=== PATIENT | male | born 1955 | race Caucasian/White ===

== ENCOUNTER 2016-11-10 12:03 | Inpatient (IN) | payer OTHER ==
[~2016-11-10] VITALS: Ht 177.8 cm; Wt 89.0 kg
[~2016-11-10 12:03] MED LIST: LACTATED RINGER'S 1000 ML INJ 1,000 ML IV ONE; ONDANSETRON HCL 4 MG/2 ML VIAL IV PUSH ONE; PHENYLEPH/NS 1000 MCG/10 ML SYR IV ONE; PROPOFOL 200 MG/20 ML AMP IV ONE; ePHEDrine/NS 25 MG/5 ML SYR IV ONE
[2016-11-10 12:04] VITALS: BP 120/76; PULSE 105; RESP 20; TEMP 98.4; O2SAT 96
--- NOTE | 2016-11-10 12:44 | PD ---
HPI Chief Complaint: Injury Time Seen by Provider: 12:30 Travel History International Travel<30 days: No Contact w/Intl Traveler<30days: No Traveled to known affect area: No History of Present Illness HPI 61-year-old male presents for evaluation of right lower leg pain. He reports that yesterday evening he "missed a step" when walking into the steps of his brother's house. He reports that he was able to ambulatory primarily in his left leg keeping weight off of his right leg. He reports he woke up today with severe pain in the right lower leg. Pain is constant, aching, worse with movement or palpation. He denies any other injuries and has no other complaints at this time. [facility] Social History Alcohol Use: Yes Tobacco Use: No Allergies-Medications (Allergen,Severity, Reaction): Coded Allergies: No Known Allergies (Unverified , 11/10/16) Reported Meds & Prescriptions Reported Meds & Active Scripts Active Reported Wellbutrin SR 12 HR (Bupropion HCl) 150 Mg Tab 150 Mg PO Q12HR Alfuzosin ER 24 HR 10 Mg Tab 10 Mg PO HS Omeprazole 20 Mg Tab 20 Mg PO DAILY Trazodone (Trazodone HCl) 100 Mg Tab 250 Mg PO HS Aspirin 81 (Aspirin) 81 Mg Tabdr 81 Mg PO DAILY Amlodipine (Amlodipine Besylate) 5 Mg Tab 5 Mg PO DAILY Fluoxetine (Fluoxetine HCl) 40 Mg Cap 40 Cap PO DAILY Review of Systems Except as stated in HPI: all other systems reviewed are Neg Physical Exam Narrative GENERAL: Well-developed well-nourished male in no acute distress SKIN: Warm and dry. HEAD: Atraumatic. Normocephalic. EYES: Pupils equal and round. No scleral icterus. No injection or drainage. ENT: No nasal bleeding or discharge. Mucous membranes pink and moist. NECK: Trachea midline. No JVD. CARDIOVASCULAR: Regular rate and rhythm. No murmur appreciated. RESPIRATORY: No accessory muscle use. Clear to auscultation. Breath sounds equal bilaterally. GASTROINTESTINAL: Abdomen soft, non-tender, nondistended. Hepatic and splenic margins not palpable. MUSCULOSKELETAL: Deformity to the right lower leg. No skin tenting or obvious open wounds. Tender to palpation to the anterior right lower leg. 2+ dorsalis pedis and posterior tibial pulses. NEUROLOGICAL: Awake and alert. No obvious cranial nerve deficits. Motor grossly within normal limits. Normal speech. PSYCHIATRIC: Appropriate mood and affect; insight and judgment normal. Data Data Last Documented VS Vital Signs Date Time Temp Pulse Resp B/P Pulse Ox O2 Delivery O2 Flow Rate FiO2 11/10/16 12:04 98.4 105 20 120/76 96 Room Air Orders Tibia/Fibula (Ap/Lat) (11/10/16 ) Foot, Limited (2vws) (11/10/16 ) Complete Blood Count With Diff (11/10/16 12:40) Basic Metabolic Panel (Bmp) (11/10/16 12:40) Act Partial Throm Time (Ptt) (11/10/16 12:40) Prothrombin Time / Inr (Pt) (11/10/16 12:40) Iv Access Insert/Monitor (11/10/16 12:40) Ice/Cold Pack (11/10/16 12:40) Morphine Inj (Morphine Inj) (11/10/16 12:45) Ondansetron Inj (Zofran Inj) (11/10/16 12:45) Vascular Access Team Consult PRN (11/10/16 13:49) Morphine Inj (Morphine Inj) (11/10/16 14:00) Vascular Poc Ultrasound (11/10/16 ) Electrocardiogram (11/10/16 ) Chest, Single Ap (11/10/16 ) Splint Or Brace Apply/Monitor (11/10/16 14:15) NPO (11/10/16 14:15) Admit To Inpatient (11/10/16 ) Inpatient Certification (11/10/16 ) Diet Npo (11/10/16 Dinner) Activity Bed Rest (11/10/16 14:22) Vital Signs (Adult) CORINNA.Q4H (11/10/16 14:22) Admit Order (Ed Use Only) (11/10/16 14:22) MDM Medical Decision Making Medical Screen Exam Complete: Yes Emergency Medical Condition: Yes Medical Record Reviewed: Yes Interpretation(s) Right tibia-fibula x-rayFINDINGS: There is an oblique fracture of the distal tibial shaft. There is some lateral displacement of the distal fragment. There is fracture of the proximal and distal aspects of the fibula. The knee and ankle joints appear aligned. Differential Diagnosis Right tibia/fibular fracture, ankle sprain, Lisfranc injury, dislocation Narrative Course 61-year-old male with right lower leg pain. Plans for tibia-fibula x-ray, foot x-ray. Ice pack provided. The patient was given morphine and Zofran and basic lab work will be performed. X-ray imaging reveals oblique fractures of the distal tibia shaft, right proximal and distal fibula. [place] splint and knee immobilizer applied as well as an ice cuff. Discussed with orthopedic physician Dr. Pablo who would like the patient admitted, npo, plans on taking him to surgery today. I discussed with Dr. Lange who is agreeable with admission. Diagnosis Primary Impression: Fracture of right tibia and fibula Qualified Code: S82.201A - Fracture of right tibia and fibula, closed, initial encounter Admitting Information Admitting Physician Requests: Cody Danielle Nov 10, 2016 12:43
[2016-11-10] MEDS ORDERED: MORPHINE SULFATE 8 MG/ML INJ IV PUSH ONE (12:45)
[2016-11-10] MEDS ORDERED: ONDANSETRON HCL 4 MG/2 ML VIAL IV PUSH ONE (12:45)
--- NOTE | 2016-11-10 13:31 | RADRPT ---
EXAM DATE/TIME: 11/10/2016 12:07 [facility] COMPARISON: No previous studies available for comparison. INDICATIONS : Right lower leg pain post fall today. MEDICAL HISTORY : None. SURGICAL HISTORY : None. ENCOUNTER: Initial ACUITY: 1 day PAIN SCORE: 10/10 LOCATION: Right tibia/fibula. FINDINGS: There is an oblique fracture of the distal tibial shaft. There is some lateral displacement of the di stal fragment. There is fracture of the proximal and distal aspects of the fibula. The knee and ankle joints appear aligned. CONCLUSION: Tibia and fibular fractures. Baltazar Valdez MD on November 10, 2016 at 13:24 Board Certified Radiologist. This report was verified electronically.
--- NOTE | 2016-11-10 13:33 | RADRPT ---
EXAM DATE/TIME: 11/10/2016 12:08 [facility] COMPARISON: No previous studies available for comparison. INDICATIONS : Right foot pain post fall today. MEDICAL HISTORY : None. SURGICAL HISTORY : None. ENCOUNTER: Initial ACUITY: 1 day PAIN SCORE: 10/10 LOCATION: Right foot. FINDINGS: There is fracturing of the distal tibia and fibula. There does appear be a small bony density at the proximal medial base of the first metatarsal. A mild fracture versus an accessory ossicle could have this appearance. CONCLUSION: 1. Distal tibia and fibular fractures. 2. Small bony density adjacent to the proximal medial base of the first metatarsal likely related to a second accessory ossicle versus a small fracture fragment. Baltazar Valdez MD on November 10, 2016 at 13:29 Board Certified Radiologist. This report was verified electronically.
[2016-11-10] MEDS ORDERED: MORPHINE SULFATE 8 MG/ML INJ IM ONE (14:00)
[2016-11-10] MEDS ORDERED: FLUO40CA PO (14:09)
[2016-11-10] MEDS ORDERED: TRAZ100T4 PO (14:09)
[2016-11-10] MEDS ORDERED: ALFU10TA2 PO (14:09)
[2016-11-10] MEDS ORDERED: AMLO5TAB2 PO (14:09)
[2016-11-10] MEDS ORDERED: OMEP20TA PO (14:09)
[2016-11-10] MEDS ORDERED: ASPI-110 PO (14:09)
[2016-11-10] MEDS ORDERED: BUPR150CR PO (14:16)
[2016-11-10 14:28] VITALS: BP 154/89; PULSE 97; RESP 20; O2SAT 94
--- NOTE | 2016-11-10 14:46 | RADRPT ---
EXAM DATE/TIME: 11/10/2016 14:21 [facility] COMPARISON: No previous studies available for comparison. INDICATIONS : Evaluate for pulmonary disease. MEDICAL HISTORY : Hypertension. SURGICAL HISTORY : None. ENCOUNTER: Initial ACUITY: 1 day PAIN SCORE: 0/10 LOCATION: Bilateral chest FINDINGS: A single view of the chest demonstrates the lungs to be symmetrically aerated without evidence of mas s, infiltrate or effusion. The cardiomediastinal contours are unremarkable. Osseous structures are intact. CONCLUSION: No acute disease. Baltazar Valdez MD on November 10, 2016 at 14:45 Board Certified Radiologist. This report was verified electronically.
[2016-11-10] MEDS ORDERED: ACETAMINOPHEN 1000 MG/100 ML VIAL IV ONE (14:56)
[2016-11-10 15:13] LABS: AUTOMATED NEUTROPHIL # 9.4 TH/MM3 (1.8-7.7); BASOPHIL % 0.1 % (0.0-2.0); HEMATOCRIT 38.3 % (39.0-51.0); HEMO FLAGS DIFF FINAL; LYMPH % 9.5 % (9.0-44.0); LYMPHOCYTE # 1.1 TH/MM3 (1.0-4.8); MEAN CELL VOLUME 91.2 FL (80.0-100.0); MEAN CORPUSCULAR HEMOGLOBIN 30.4 PG (27.0-34.0); MEAN CORPUSCULAR HGB CONC 33.3 % (32.0-36.0); MONO % 9.5 % (0.0-8.0); NEUT % 80.9 % (16.0-70.0); PLATELET COUNT 238 TH/MM3 (150-450); RED BLOOD COUNT 4.19 MIL/MM3 (4.50-5.90); RED CELL DISTRIBUTION WIDTH 12.4 % (11.6-17.2); WHITE BLOOD COUNT 11.6 TH/MM3 (4.0-11.0)
--- NOTE | 2016-11-10 15:14 | PD.CONS ---
cc: Nicho Pablo MD right tibia/fibula fractures (Nataly Ott) HPI Service Orthopedic Surgeons Consult Requested By ER Staff Reason for Consult Right Tibia / Fibula Fractures Primary Care Physician Non-Staff Admission Diagnosis Right tibia/fibula fracture Diagnoses: (1) Closed fracture of right fibula and tibia Diagnosis: Principal (2) Hypertension (3) Depression (Nataly Ott) History of Present Illness 61 year old male presented today to [place] [facility] after a trip and fall incident yesterday. He admits he tripped off of his brother's back porch and landed on his right ankle. He states he had immediate pain localized to his right lower extremity. He admits to alcohol use at the time of injury. He admits he 'thought it wasn't that bad' and went to bed last night. He states he couldn't put any weight on his right lower extremity this morning and had severe pain with any attempt at ambulation, at this point he went to the emergency department. Orthopaedic consultation was requested upon evaluation and radiographs. X-rays reveal a closed right distal oblique minimally displaced tibial fracture as well as proximal and distal fibula fractures. Admits to no problems with ambulation prior to this injury. He denies prior orthopaedic surgery or problems. He is not anticoagulated. He is otherwise healthy. No other signs of injury or complaints at this time. (Nataly Ott) History of Present Illness The patient is from [place] and states he does have an orthopedic surgeon that can follow-up upon discharge. (Nicho Pablo MD) Review of Systems Psychiatric: COMPLAINS OF: Anxiety see medical chart (Nataly Ott) Past Family Social History Past Medical History HTN, depression, anxiety Past Surgical History tonsillectomy as child (Nataly Ott) Allergies: Coded Allergies: No Known Allergies (Unverified , 11/10/16) Active Ordered Medications Reported Meds & Active Scripts Active Reported Wellbutrin SR 12 HR (Bupropion HCl) 150 Mg Tab 150 Mg PO Q12HR Alfuzosin ER 24 HR 10 Mg Tab 10 Mg PO HS Omeprazole 20 Mg Tab 20 Mg PO DAILY Trazodone (Trazodone HCl) 100 Mg Tab 250 Mg PO HS Aspirin 81 (Aspirin) 81 Mg Tabdr 81 Mg PO DAILY Amlodipine (Amlodipine Besylate) 5 Mg Tab 5 Mg PO DAILY Fluoxetine (Fluoxetine HCl) 40 Mg Cap 40 Cap PO DAILY Family History non-contributory Social History social alcohol use, non smoker, no drug use (Nataly Ott) Physical Exam Vital Signs Vital Signs Date Time Temp Pulse Resp B/P Pulse Ox O2 Delivery O2 Flow Rate FiO2 11/10/16 14:28 97 20 154/89 94 Room Air 11/10/16 12:04 98.4 105 20 120/76 96 Room Air Physical Exam RLE: extremity in splint, splint was not removed for exam, freely able to move toes, good cap refill, pulses intact distally, sensation normal, neurovascular intact, pain with any attempted ROM, pain located over proximal fibula and distal tibia/fibula. No other signs of musculoskeletal injury. (Nataly Ott) Physical Exam No pain with passive range of motion of the toes. Laboratory Laboratory Tests Test 11/10/16 14:40 White Blood Count 11.6 TH/MM3 Red Blood Count 4.19 MIL/MM3 Hemoglobin 12.7 GM/DL Hematocrit 38.3 % Mean Corpuscular Volume 91.2 FL Mean Corpuscular Hemoglobin 30.4 PG Mean Corpuscular Hemoglobin 33.3 % Concent Red Cell Distribution Width 12.4 % Platelet Count 238 TH/MM3 Mean Platelet Volume 9.4 FL Neutrophils (%) (Auto) 80.9 % Lymphocytes (%) (Auto) 9.5 % Monocytes (%) (Auto) 9.5 % Eosinophils (%) (Auto) 0.0 % Basophils (%) (Auto) 0.1 % Neutrophils # (Auto) 9.4 TH/MM3 Lymphocytes # (Auto) 1.1 TH/MM3 Monocytes # (Auto) 1.1 TH/MM3 Eosinophils # (Auto) 0.0 TH/MM3 Basophils # (Auto) 0.0 TH/MM3 CBC Comment DIFF FINAL Differential Comment Prothrombin Time 10.7 SEC Prothromb Time International 1.0 RATIO Ratio Activated Partial 27.8 SEC Thromboplast Time Sodium Level 134 MEQ/L Potassium Level 4.4 MEQ/L Chloride Level 98 MEQ/L Carbon Dioxide Level 22.7 MEQ/L Anion Gap 13 MEQ/L Blood Urea Nitrogen 10 MG/DL Creatinine 1.29 MG/DL Estimat Glomerular Filtration 56 ML/MIN Rate Random Glucose 95 MG/DL Calcium Level 9.0 MG/DL (Nicho Pablo MD) Imaging Right tibia-fibula x-ray FINDINGS: There is an oblique fracture of the distal tibial shaft. There is some lateral displacement of the distal fragment. There is fracture of the proximal and distal aspects of the fibula. The knee and ankle joints appear aligned. Course see medical chart (Nataly Ott) Assessment & Plan Problem List: (1) Closed fracture of right fibula and tibia (2) Hypertension (3) Depression Assessment and Plan The findings were discussed with the patient. Recommendations are given for surgical management, to allow for mobilization and pain control. The plan is to proceed forward with intramedullary rhoda placement of right tibia, suprapatellar approach. The nature of the planned surgical procedure, the risks, the benefits as well as postoperative expectations have been discussed with the patient in detail. In addition, alternatives of the treatment and risks were discussed. The patient acknowledges full understanding and consents to it. Keep patient NPO until planned surgical procedure. Written by Nataly Ott (Ashley), acting as scribe for Dr. Pablo on at 15:08. (Nataly Ott) Assessment and Plan The nonoperative alternatives of closed reduction with cast immobilization as well as risks and benefits of same were discussed in detail. All of the questions were answered to the patient's satisfaction. Will proceed as above. The exam, history, and the medical decision-making described in the above note were completed with the assistance of the mid-level provider. I reviewed and agree with the findings presented. I attest that I had a [id number] encounter with the patient on the same day, and personally performed and documented my assessment and findings in the medical record. (Nicho Pablo MD) Nataly Ott Nov 10, 2016 15:14 iNcho Pablo MD Nov 10, 2016 15:52
--- NOTE | 2016-11-10 15:16 | HHI.HP ---
[facility] Non-Staff Admission Diagnosis Right tibia/fibula fracture Diagnoses: (1) Closed fracture of right fibula and tibia Diagnosis: Principal (2) Hypertension Diagnosis: Secondary Chief Complaint: Right leg pain Travel History International Travel<30 Days: No Contact w/Intl Traveler <30 Da: No Traveled to Known Affected Are: No History of Present Illness Patient is a very pleasant 61-year-old male with a known history of benign prostate hypertrophy, depression, hypertension from [place] who is here visiting his brother who last evening going through the back porch misjudged a step and fell and tripped. Apparently twisted his leg and woke up this morning with excruciating pain and swelling of the left foot. No chest pains, shortness of breath,. Denies any syncopal episodes . he was promptly brought in here by family on an evaluation showed a distal tib-fib fracture patient. Patient was promptly seen by orthopedic surgery and prepped dose go to surgery this afternoon. PCP is Dr. Bassett from [place] [facility] in [place] Review of Systems Constitutional: DENIES: Diaphoretic episodes, Fatigue, Fever, Weight gain, Weight loss, Chills, Dizziness, Change in appetite, Night Sweats Endocrine: DENIES: Heat/cold intolerance, Polydipsia, Polyuria, Polyphagia Eyes: DENIES: Blurred vision, Diplopia, Eye inflammation, Eye pain, Vision loss , Photosensitivity, Double Vision Ears, nose, mouth, throat: DENIES: Tinnitus, Hearing loss, Vertigo, Nasal discharge, Oral lesions, Throat pain, Hoarseness, Ear Pain, Running Nose, Epistaxis, Sinus Pain, Toothache, Odynophagia Respiratory: DENIES: Apneas, Cough, Snoring, Wheezing, Hemoptysis, Sputum production, Shortness of breath Cardiovascular: DENIES: Chest pain, Palpitations, Syncope, Dyspnea on Exertion , PND, Lower Extremity Edema, Orthopnea, Claudication Gastrointestinal: DENIES: Abdominal pain, Black stools, Bloody stools, Constipation, Diarrhea, Nausea, Vomiting, Difficulty Swallowing, Anorexia Genitourinary: DENIES: Sexual dysfunction, Urinary frequency, Urinary incontinence, Urgency, Hematuria, Dysuria, Nocturia, Penile Discharge, Testicular Pain, Testicular Swelling Musculoskeletal: DENIES: Joint pain, Muscle aches, Stiffness, Joint Swelling, Back pain, Neck pain Integumentary: DENIES: Abnormal pigmentation, Nail changes, Pruritus, Rash Hematologic/lymphatic: DENIES: Bruising, Lymphadenopathy Immunologic/allergic: DENIES: Eczema, Urticaria Neurologic: DENIES: Abnormal gait, Headache, Localized weakness, Paresthesias, Seizures, Speech Problems, Tremor, Poor Balance Psychiatric: DENIES: Anxiety, Confusion, Mood changes, Depression, Hallucinations, Agitation, Suicidal Ideation, Homicidal Ideation, Delusions Past Family Social History Past Medical History Hypertension Depression Benign prostate hypertrophy GERD Colonoscopy done 3 times. First and second colonoscopy shows polyps benign. third colonoscopy normal Past Surgical History Testicular mass removal at 11 years of age Tonsillectomy as a child Reported Medications Wellbutrin SR 150 mg every 12 Fluoxetine 40 mg daily Trazodone to meet to 50 mg at bedtime Amlodipine 5 mg daily Aspirin 81 mg daily Omeprazole 20 mg daily Alfuzosin 10 mg at bedtime Allergies: Coded Allergies: No Known Allergies (Unverified , 11/10/16) Family History Noncontributory Social History No smoking history Occasional wine No history of substance abuse Physical Exam Vital Signs Vital Signs Date Time Temp Pulse Resp B/P Pulse Ox O2 Delivery O2 Flow Rate FiO2 11/10/16 14:28 97 20 154/89 94 Room Air 11/10/16 12:04 98.4 105 20 120/76 96 Room Air Physical Exam GENERAL: This is a well-nourished, well-developed patient, in no apparent distress. SKIN: No rashes, ecchymoses or lesions. Cool and dry. HEAD: Atraumatic. Normocephalic.. EYES: Pupils equal round and reactive. Extraocular motions intact. No scleral icterus. ENT: Nose without bleeding, Throat without erythema,. Airway patent. NECK: . No JVD or lymphadenopathy. Supple, nontender, no meningeal signs. CARDIOVASCULAR: Regular rate and rhythm without murmurs, gallops, or rubs. RESPIRATORY: Clear to auscultation. Breath sounds equal bilaterally. No wheezes , rales, or rhonchi. GASTROINTESTINAL: Abdomen soft, non-tender, nondistended. No hepato-splenomegaly , or palpable masses. No guarding. MUSCULOSKELETAL: Extremities without clubbing, cyanosis, or edema. Right lower extremity with brace in place. Bilateral dorsalis pedis posterior tib tibialis +2. NEUROLOGICAL: Awake and alert. Cranial nerves II through XII intact. Normal speech. Right lower extremity motor exam limited by pain Assessment and Plan Assessment and Plan 61-year-old male presenting with Status post fall with right tib-fib fracture. Orthopedic service taking him to surgery When necessary pain meds postop History of hypertension continue meds postop Chest x-ray no acute infiltrates or effusion . 12-lead EKG reviewed shows left axis deviation left anterior hemiblock no acute ST-T wave changes History of GERD. Continue on Prilosec postop History of BPH continue on meds postop DVT prophylaxis postop per orthopedic service Discussed Condition With Patient Physician Certification 2 Midnight Certification Type: Admission for Inpatient Services Order for Inpatient Services The services are ordered in accordance with Medicare regulations or non- Medicare payer requirements, as applicable. In the case of services not specified as inpatient-only, they are appropriately provided as inpatient services in accordance with the 2-midnight benchmark. Estimated LOS (days): 3 days is the estimated time the patient will need to remain in the hospital, assuming treatment plan goals are met and no additional complications. Post-Hospital Plan: Not yet determined James Lange MD Nov 10, 2016 15:16
[2016-11-10 15:20] VITALS: BP 121/86; PULSE 96; RESP 20; TEMP 97.9; O2SAT 96
[2016-11-10] MEDS ORDERED: VANCOMYCIN HCL 1000 MG VIAL ONE (15:21)
[2016-11-10] MEDS ORDERED: ceFAZolin INJ 1,000 MG VIAL ONE (15:21)
[2016-11-10] MEDS ORDERED: GENTAMICIN SULFATE 80 MG/2 ML VIAL ONE (15:22)
[2016-11-10 15:29] LABS: BICARBONATE 22.7 MEQ/L (21.0-32.0); POTASSIUM 4.4 MEQ/L (3.5-5.1)
[2016-11-10 15:34] LABS: APTT (PATIENT) 27.8 SEC (24.3-30.1); PROTHROMBIN TIME - PATIENT 10.7 SEC (9.8-11.6)
[2016-11-10] MEDS ORDERED: DEXT 5%-NACL 0.9% 1000 ML INJ 1,000 ML IV SCH (15:45)
--- NOTE | 2016-11-10 17:37 | PD.OP ---
cc: Nicho Pablo MD Operative Report Date of Surgery: Nov 10, 2016 Preoperative Diagnosis: (1) Closed fracture of right fibula and tibia Postoperative Diagnosis: (1) Closed fracture of right fibula and tibia Procedure: Closed reduction with intramedullary rhoda fixation right tibia Implants used: Synthes Anesthesia: Gen. Surgeon: Nicho Pablo Infection Control Preventionist(s): Nataly Ott PA-C (Ashley) The surgical procedure was assisted by my physician's speech language pathology assistant. Her presence was necessary throughout the case for manipulation and positioning of the surgical extremity. My PA was assisting me throughout the duration of this procedure. The skill set of the physician speech language pathology assistant was medically necessary to complete this procedure. During the surgical case the cartography/mapping technician was working at the back table and the physician speech language pathology assistant was directly assisting me. Operation and Findings: Indications: This 61-year-old male fell on stairs yesterday injuring his right lower extremity. He did not seek medical treatment until today when his pain got worse. He presented to [facility]. X-rays revealed a displaced fracture of the distal tibia and a segmental fibula fracture. Given the alternatives of treatment both operative and nonoperative he presents for internal fixation. Procedure and findings: Patient was taken to the operative suite and after undergoing an adequate level of general anesthesia was kept supine on the operating table. Preoperative antibiotics consisted of Ancef 2 g IV. The right lower extremity was then prepped and draped in usual sterile fashion with Betadine. A suprapatellar approach to the proximal tibia was made with incision approximately 4 cm proximal to the superior pole of the patella. This was carried down through skin and subcutaneous tense tissue with a knife. Hemostasis was obtained with cautery. The quadricep tendon was identified and a 3 cm split made. The joint capsule was opened. A trocar was then placed through the joint to the proximal tibial plateau. The position was checked in both the AP and lateral planes with the C-arm. A threaded guidepin was advanced. The position was also checked with fluoroscopy. It was subsequently overdrilled. A ball-tipped guide pin was advanced down the proximal tibia across the fracture site to the ankle. A measurement was made. The tibia was then sequentially reamed after releasing the tourniquet up to a size 12. An 11 x 3 75 Synthes rhoda was selected. It was impacted into place. The position of the fracture reduction was checked in both the AP and lateral planes with the C- arm. An outrigger device was utilized for interlocking fixation proximally. 2 screws were placed from medial to lateral. Distally a freehand technique was utilized. One medial to lateral screw was placed. Attempt was made at another medial to lateral screw however it was at the fracture site and did not give fixation. An anterior to posterior screw was then placed. The position of the fracture reduction and placement of the internal fixation were checked in both the AP and lateral planes with the C-arm. The wounds were then all thoroughly irrigated. There were closed in layers utilizing #1 Vicryl on the tenotomy and deep tissue, 2-0 Vicryl suture and the subcutaneous tense tissue and adrienne on the skin and percutaneous sites. Sterile dressings were applied, the patient was placed into a splint, awakened, transferred to the hospital bed and taken to the recovery room in stable condition. Estimated blood loss: 100 cc Complications: None Tourniquet time: 15 minutes Nicho Pablo MD Nov 10, 2016 17:37
[2016-11-10] MEDS ORDERED: MORPHINE SULFATE 30 MG/30 ML PCA IV SCH (17:45)
[2016-11-10] MEDS ORDERED: Post-op Orders (for Pharmacy) MISC XX ONE (17:45)
[2016-11-10] MEDS ORDERED: ONDANSETRON HCL 4 MG/2 ML VIAL IVP PRN (17:45)
[2016-11-10] MEDS ORDERED: NALOXONE HCL 0.4 MG/ML AMP IV PRN (17:45)
[2016-11-10] MEDS ORDERED: SODIUM CHLORIDE 0.9% FLUSH 5 ML FLUSH IVF PRN (17:45)
[2016-11-10] MEDS ORDERED: oxyCODONE/ACETAMINOPHEN 5 MG/325 MG TAB PO PRN (17:45)
[2016-11-10] MEDS ORDERED: MISCELLANEOUS NURSING INFORMATION XX PRN (17:45)
[2016-11-10] MEDS ORDERED: POVIDONE IODINE 10% SOLN 118 ML BOTTLE TOPICAL PRN (17:45)
[2016-11-10] MEDS ORDERED: diphenhydrAMINE HCL 25 MG CAP PO PRN (17:45)
[2016-11-10] MEDS ORDERED: MISCELLANEOUS PHARMACY INFORMATION XX ONE (17:45)
[2016-11-10] MEDS ORDERED: MAGNESIUM HYDROXIDE SUSP 30 ML CUP PO PRN (17:45)
[2016-11-10] MEDS ORDERED: fentaNYL CITRATE 250 MCG/5 ML AMP ONE (17:59)
[2016-11-10] MEDS ORDERED: MIDAZOLAM HCL 2 MG/2 ML VIAL ONE (17:59)
[2016-11-10] MEDS: DEXT 5%-NACL 0.45% 1000 ML INJ 1,000 ML IV SCH (18:00)
[2016-11-10] MEDS ORDERED: MORPHINE SULFATE 4 MG/ML INJ IV PRN (18:15)
[2016-11-10] MEDS ORDERED: DO NOT ADM ANY ANTICOAGULANT DRUGS XX PRN (18:15)
--- NOTE | 2016-11-10 18:27 | RADRPT ---
EXAM DATE/TIME: 11/10/2016 15:56 [facility] COMPARISON: TIBIA/FIBULA RIGHT (AP/LAT), November 10, 2016, 12:07. INDICATIONS : Open reduction in operating room. MEDICAL HISTORY : None. SURGICAL HISTORY : None. ENCOUNTER: Subsequent ACUITY: 1 day PAIN SCORE: Non-responsive. LOCATION: Right lateral FINDINGS: Two view examination of the right tibia demonstrates nilesh fixation across a spiral fracture of the dis hanna tibia with near-anatomic alignment. Mildly displaced distal fibular fracture again noted. Proxima l fibular fracture also present. CONCLUSION: 1. Nilesh fixation of distal tibial fracture with near-anatomic alignment. Bonifacio Mary MD on November 10, 2016 at 18:23 Board Certified Radiologist. This report was verified electronically.
[2016-11-10 19:54] VITALS: O2SAT 99
[2016-11-10 20:45] VITALS: BP 129/75; PULSE 95; RESP 16; TEMP 98.2; O2SAT 98
[2016-11-10] MEDS: PCA - TOTAL MG MORPHINE DELIVERED PER SHIFT SCH (22:00)
[2016-11-10] MEDS: oxyCODONE/ACETAMINOPHEN 5 MG/325 MG TAB PO PRN (23:06)
[2016-11-10] MEDS: traZODone HCL 100 MG TAB PO SCH (23:07)
[2016-11-10] MEDS: buPROPion HCL 150 MG SUSTAINED RELEASE TAB PO SCH (23:07)
[2016-11-10] MEDS: DOCUSATE SODIUM 50 MG/SENNA 8.6 MG TAB PO SCH (23:07)
[2016-11-10] MEDS: SODIUM CHLORIDE 0.9% FLUSH 5 ML FLUSH IVF SCH (23:08)
[2016-11-11] VITALS (8 sets, daily range): BP systolic 110–146; BP diastolic 67–91; PULSE 70–94; RESP 16–20; TEMP 97–98.6; O2SAT 95–97
[2016-11-11] MEDS ORDERED: ceFAZolin 2 GM PREMIX 50 ML IV SCH
[2016-11-11 06:13] LABS: HEMATOCRIT 37.6 % (39.0-51.0); REVIEW FLAG FINAL
[2016-11-11] MEDS: RIVAROXABAN 10 MG TAB PO SCH (06:59)
[2016-11-11] MEDS: oxyCODONE/ACETAMINOPHEN 5 MG/325 MG TAB PO PRN ×3 (07:00→21:21)
--- NOTE | 2016-11-11 07:47 | PD.ORT.PN ---
Subjective Post Op Day #: 1 Subjective Remarks Patient laying comfortably in bed, admits right lower extremity pain is well controlled. RN reports IV line was infiltrated last night and was unable to secure new IV access. He is from out of town but is able to stay with his brother upon discharge if needed, admits to orthopedist [facility]. No other complaints noted. Objective Vitals Vital Signs Date Time Temp Pulse Resp B/P Pulse Ox O2 Delivery O2 Flow Rate FiO2 11/11/16 04:05 97.6 76 16 146/91 97 11/11/16 00:25 97.0 86 18 110/83 95 11/10/16 22:00 17 11/10/16 20:45 98.2 95 16 129/75 98 11/10/16 19:54 99 Nasal Cannula 2.00 11/10/16 18:20 97.7 77 22 140/89 99 Nasal Cannula 2 11/10/16 18:15 77 22 140/89 99 Nasal Cannula 2 11/10/16 18:00 83 22 151/96 99 Nasal Cannula 2 11/10/16 17:45 73 22 157/95 100 Nasal Cannula 2 11/10/16 17:39 98.0 74 22 147/96 100 Nasal Cannula 2 11/10/16 15:20 97.9 96 20 121/86 96 11/10/16 14:28 97 20 154/89 94 Room Air 11/10/16 12:04 98.4 105 20 120/76 96 Room Air I/O 11/10/16 11/10/16 11/10/16 11/11/16 11/11/16 11/11/16 07:00 15:00 23:00 07:00 15:00 23:00 Intake Total 1285 ml 600 ml Output Total 550 ml 925 ml Balance 735 ml -325 ml Intake Oral 360 ml 600 ml IV Total 25 ml Other 900 ml Output Urine Total 550 ml 925 ml # Bowel Movements 0 0 Result Diagram: 11/11/16 0539 11/10/16 1440 Other Results Laboratory Tests Test 11/10/16 14:40 Prothrombin Time 10.7 SEC (9.8-11.6) Prothromb Time International 1.0 RATIO Ratio Procedures Closed reduction with intramedullary rhoda fixation right tibia (11/10/16) Objective Remarks RLE: splint and dry dressing in place and intact, knee immobilizer on, freely able to wiggle toes, good cap refill, sensation intact, neurovascular intact. Assessment & Plan Ortho Post Op Day #: 1 Problem List: (1) Closed fracture of right fibula and tibia (2) Hypertension (3) Depression Assessment and Plan Ortho status stable POD #1 Closed reduction with intramedullary rhoda fixation right tibia Progress rehab, toe touch WB RLE Xarelto for DVT prophylaxis, continue pain control and bowel regimen. Consult to IV team to secure access. Maintain antibiotic schedule as directed. Discharge planning. Nataly Ott Nov 11, 2016 07:47
[2016-11-11] MEDS: SODIUM CHLORIDE 0.9% FLUSH 5 ML FLUSH IVF SCH ×2 (09:00→20:16)
[2016-11-11] MEDS: MULTIVITAMINS/MINERALS THERAPEUTIC TAB PO SCH (10:06)
[2016-11-11] MEDS: FLUoxetine HCL 20 MG CAP PO SCH (10:06)
[2016-11-11] MEDS: buPROPion HCL 150 MG SUSTAINED RELEASE TAB PO SCH ×2 (10:06→20:15)
[2016-11-11] MEDS: PANTOPRAZOLE SOD 20 MG DELAYED RELEASE TAB PO SCH (10:06)
[2016-11-11] MEDS: amLODIPine BESYLATE 5 MG TAB PO SCH (10:06)
[2016-11-11] MEDS: DOCUSATE SODIUM 50 MG/SENNA 8.6 MG TAB PO SCH ×2 (10:06→20:15)
--- NOTE | 2016-11-11 10:27 | HHI.PR ---
Subjective Remarks good po looking forward to therapy voiding spontaneously Objective Vitals Vital Signs Date Time Temp Pulse Resp B/P Pulse Ox O2 Delivery O2 Flow Rate FiO2 11/11/16 08:04 97.7 79 16 128/82 95 11/11/16 04:05 97.6 76 16 146/91 97 11/11/16 00:25 97.0 86 18 110/83 95 11/10/16 22:00 17 11/10/16 20:45 98.2 95 16 129/75 98 11/10/16 19:54 99 Nasal Cannula 2.00 11/10/16 18:20 97.7 77 22 140/89 99 Nasal Cannula 2 11/10/16 18:15 77 22 140/89 99 Nasal Cannula 2 11/10/16 18:00 83 22 151/96 99 Nasal Cannula 2 11/10/16 17:45 73 22 157/95 100 Nasal Cannula 2 11/10/16 17:39 98.0 74 22 147/96 100 Nasal Cannula 2 11/10/16 15:20 97.9 96 20 121/86 96 11/10/16 14:28 97 20 154/89 94 Room Air 11/10/16 12:04 98.4 105 20 120/76 96 Room Air I/O 11/10/16 11/10/16 11/10/16 11/11/16 11/11/16 11/11/16 07:00 15:00 23:00 07:00 15:00 23:00 Intake Total 1285 ml 600 ml Output Total 550 ml 925 ml Balance 735 ml -325 ml Intake Oral 360 ml 600 ml IV Total 25 ml Other 900 ml Output Urine Total 550 ml 925 ml # Bowel Movements 0 0 Result Diagram: 11/11/16 0539 11/10/16 1440 Objective Remarks awake and alert, NAD anicteric lungs clear regular rhythm abdomen soft, good bowel sounds right LE- post op elastic dressing in place, wiggle toes freely Procedures 11/10- closed reduction with IM rhoda fixation A/P Problem List: (1) Closed fracture of right fibula and tibia ICD Code: S82.201A Status: Acute (2) Hypertension ICD Code: I10 Status: Acute Assessment and Plan 61-year-old male presenting with s/p Fall Status post close reduction with IM rhoda fixation of right tib/fib fracture with right tib-fib fracture. Orthopedic service ff. PT ff When necessary pain meds postop History of hypertension. continue on Amlodipine History of GERD. Continue on Prilosec History of BPH continue on meds postop- equivalent to Flomax DVT prophylaxis- James Be MD Nov 11, 2016 10:27
[2016-11-11] MEDS: ceFAZolin 2 GM PREMIX 50 ML IV SCH ×2 (11:30→20:16)
[2016-11-11] MEDS: PCA - TOTAL MG MORPHINE DELIVERED PER SHIFT SCH ×2 (14:43→20:16)
--- NOTE | 2016-11-11 14:52 | EKG ---
Date Performed: 11/10/2016 Time Performed: 14:20:42 PTAGE: 61 years EKG: Sinus rhythm LEFT ANTERIOR FASCICULAR BLOCK SEPTAL MYOCARDIAL INFARCTION ABNORMAL ECG INTERPRETATION BASED ON A D EFAULT AGE OF 38 YEARS NO PREVIOUS TRACING DOCTOR: Savannah Abernathy Interpretating Date/Time 11/11/2016 14:48:50
[2016-11-11] MEDS: traZODone HCL 100 MG TAB PO SCH (20:16)
[2016-11-11] MEDS ORDERED: TAMSULOSIN HCL 0.4 MG CAP PO SCH (21:00)
[2016-11-12 00:12] VITALS: BP 132/88; PULSE 86; RESP 21; TEMP 98.6; O2SAT 97
[2016-11-12] MEDS: ceFAZolin 2 GM PREMIX 50 ML IV SCH (04:11)
[2016-11-12] MEDS: oxyCODONE/ACETAMINOPHEN 5 MG/325 MG TAB PO PRN ×3 (04:13→15:55)
[2016-11-12 04:29] VITALS: BP 147/86; PULSE 92; RESP 20; TEMP 99; O2SAT 94
[2016-11-12] MEDS: PCA - TOTAL MG MORPHINE DELIVERED PER SHIFT SCH (06:00)
[2016-11-12] MEDS: RIVAROXABAN 10 MG TAB PO SCH (06:03)
--- NOTE | 2016-11-12 07:53 | PD.ORT.PN ---
Subjective Post Op Day #: 2 Subjective Remarks Patient laying comfortably in bed, admits right lower extremity pain is well controlled. IV access secured, antibiotic course completed. He plans to fly back home Friday. No other complaints noted. Objective Vitals Vital Signs Date Time Temp Pulse Resp B/P Pulse Ox O2 Delivery O2 Flow Rate FiO2 11/12/16 04:29 99.0 92 20 147/86 94 11/12/16 00:12 98.6 86 21 132/88 97 11/11/16 20:32 98.6 94 20 113/81 97 11/11/16 20:16 16 11/11/16 19:59 96 21 11/11/16 16:50 98.6 70 16 125/70 97 11/11/16 14:43 16 11/11/16 12:10 98.1 78 16 120/67 96 11/11/16 10:33 97 Nasal Cannula 21 11/11/16 08:04 97.7 79 16 128/82 95 I/O 11/11/16 11/11/16 11/11/16 11/12/16 11/12/16 11/12/16 07:00 15:00 23:00 07:00 15:00 23:00 Intake Total 600 ml 1280 ml 480 ml 240 ml Output Total 925 ml 300 ml 250 ml Balance -325 ml 980 ml 480 ml -10 ml Intake Oral 600 ml 1280 ml 480 ml 240 ml Output Urine Total 925 ml 300 ml 250 ml # Voids 5 3 # Bowel Movements 0 0 0 Result Diagram: 11/11/16 0539 11/10/16 1440 Procedures Closed reduction with intramedullary rhoda fixation right tibia (11/10/16) Objective Remarks RLE: splint and dry dressing in place and intact, knee immobilizer on, freely able to wiggle toes, good cap refill, sensation intact, neurovascular intact. Assessment & Plan Ortho Post Op Day #: 2 Problem List: (1) Closed fracture of right fibula and tibia (2) Hypertension (3) Depression Assessment and Plan Ortho status stable POD #2 Closed reduction with intramedullary rhoda fixation right tibia Progress rehab, toe touch WB RLE Okay to remove splint for knee range and ankle of motion exercises. Splint/ brace for comfort. Daily dressing changes. Xarelto for DVT prophylaxis, continue pain control and bowel regimen. Discharge planning - plan to d/c today. Nataly Ott Nov 12, 2016 07:53
--- NOTE | 2016-11-12 07:57 | HHI.DS ---
Discharge Summary Admission Date Nov 10, 2016 at 17:49 Discharge Date: Nov 12, 2016 Admitting Diagnosis Closed fracture of right tibia and fibula Diagnosis: (1) Closed fracture of right fibula and tibia (2) Hypertension (3) Depression Procedures Closed reduction with intramedullary nilesh fixation right tibia (11/10/16) CBC/BMP: 11/11/16 0539 11/10/16 1440 Significant Findings Laboratory Tests Test 11/10/16 11/11/16 14:40 05:39 White Blood Count 11.6 TH/MM3 (4.0-11.0) Red Blood Count 4.19 MIL/MM3 (4.50-5.90) Hemoglobin 12.7 GM/DL 12.4 GM/DL (13.0-17.0) (13.0-17.0) Hematocrit 38.3 % 37.6 % (39.0-51.0) (39.0-51.0) Neutrophils (%) (Auto) 80.9 % (16.0-70.0) Monocytes (%) (Auto) 9.5 % (0.0-8.0) Neutrophils # (Auto) 9.4 TH/MM3 (1.8-7.7) Monocytes # (Auto) 1.1 TH/MM3 (0-0.9) Sodium Level 134 MEQ/L (136-145) Estimat Glomerular Filtration 56 ML/MIN (>89) Rate Imaging Last Impressions Tibia/Fibula X-Ray 11/10/16 0000 Signed Impressions: Service Date/Time: Thursday, November 10, 2016 15:56 - CONCLUSION: 1. Nilesh fixation of distal tibial fracture with near-anatomic alignment. Bonifacio Mary MD Foot X-Ray 11/10/16 0000 Signed Impressions: Service Date/Time: Thursday, November 10, 2016 12:08 - CONCLUSION: 1. Distal tibia and fibular fractures. 2. Small bony density adjacent to the proximal medial base of the first metatarsal likely related to a second accessory ossicle versus a small fracture fragment. Baltazar Valdez MD Chest X-Ray 11/10/16 0000 Signed Impressions: Service Date/Time: Thursday, November 10, 2016 14:21 - CONCLUSION: No acute disease. Baltazar Valdez MD PE at Discharge RLE: splint and dry dressing in place and intact, knee immobilizer on, freely able to wiggle toes, good cap refill, sensation intact, neurovascular intact. Hospital Course This 61-year-old male fell on stairs yesterday injuring his right lower extremity. He delayed seeking medical treatment a day until today when his pain got worse. He presented to [facility]. X-rays revealed a displaced fracture of the distal tibia and a segmental fibula fracture. Given the alternatives of treatment both operative and nonoperative he presents for internal fixation. On the day of admission the patient was taken to the operating room where the patient underwent closed reduction with intramedullary nilesh fixation of right tibia. The patient tolerated the procedure well. For details of operative report please see dictated operative report. The patient was placed on Ancef for infection prophylaxis and Xarelto for DVT prophylaxis. Physical therapy was consulted for discharge planning. At the time of discharge the patient was afebrile. Incision line noted to be healing well. The patient will be discharged home with Xarelto for DVT prophylaxis and prescribed Percocet for pain. The patient acknowledges full understanding of plan of treatment and agrees to it. Patient understands he is to follow up with orthopedics in 7-10 days upon his return to home. Pt Condition on Discharge: Good Discharge Disposition: Discharge Home Discharge Instructions Diet Instructions: High Fiber Diet Activities You Can Perform: Toe Touch Weight Bearing Activities to Avoid: Lifting/Bending Nataly Ott Nov 12, 2016 07:57
[2016-11-12 08:00] VITALS: BP 149/85; PULSE 77; RESP 18; TEMP 99; O2SAT 98
[2016-11-12] MEDS ORDERED: XARE10TA PO (08:00)
[2016-11-12] MEDS ORDERED: WALKER WHEELS/F1 MIS (08:00)
[2016-11-12] MEDS: SODIUM CHLORIDE 0.9% FLUSH 5 ML FLUSH IVF SCH (09:00)
--- NOTE | 2016-11-12 09:22 | HHI.PR ---
Subjective Remarks up and ambulating with a walker voiding spontaneously, + flatus Objective Vitals Vital Signs Date Time Temp Pulse Resp B/P Pulse Ox O2 Delivery O2 Flow Rate FiO2 11/12/16 08:00 99.0 77 18 149/85 98 11/12/16 04:29 99.0 92 20 147/86 94 11/12/16 00:12 98.6 86 21 132/88 97 11/11/16 20:32 98.6 94 20 113/81 97 11/11/16 20:16 16 11/11/16 19:59 96 21 11/11/16 16:50 98.6 70 16 125/70 97 11/11/16 14:43 16 11/11/16 12:10 98.1 78 16 120/67 96 11/11/16 10:33 97 Nasal Cannula 21 I/O 11/11/16 11/11/16 11/11/16 11/12/16 11/12/16 11/12/16 07:00 15:00 23:00 07:00 15:00 23:00 Intake Total 600 ml 1280 ml 480 ml 240 ml Output Total 925 ml 300 ml 250 ml Balance -325 ml 980 ml 480 ml -10 ml Intake Oral 600 ml 1280 ml 480 ml 240 ml Output Urine Total 925 ml 300 ml 250 ml # Voids 5 3 # Bowel Movements 0 0 0 Result Diagram: 11/11/16 0539 11/10/16 1440 Imaging Last Impressions Tibia/Fibula X-Ray 11/10/16 0000 Signed Impressions: Service Date/Time: Thursday, November 10, 2016 15:56 - CONCLUSION: 1. Inlesh fixation of distal tibial fracture with near-anatomic alignment. Bonifacio Mary MD Foot X-Ray 11/10/16 0000 Signed Impressions: Service Date/Time: Thursday, November 10, 2016 12:08 - CONCLUSION: 1. Distal tibia and fibular fractures. 2. Small bony density adjacent to the proximal medial base of the first metatarsal likely related to a second accessory ossicle versus a small fracture fragment. Baltazar Valdez MD Chest X-Ray 11/10/16 0000 Signed Impressions: Service Date/Time: Thursday, November 10, 2016 14:21 - CONCLUSION: No acute disease. Baltazar Valdez MD Objective Remarks awake and alert, NAD anicteric lungs clear regular rhythm abdomen soft, good bowel sounds right LE- post op elastic dressing in place, wiggle toes freely Procedures 11/10- closed reduction with IM nilesh fixation A/P Problem List: (1) Closed fracture of right fibula and tibia ICD Code: S82.201A Status: Acute (2) Hypertension ICD Code: I10 Status: Acute Assessment and Plan 61-year-old male presenting with s/p Fall Status post close reduction with IM nilesh fixation of right tib/fib fracture with right tib-fib fracture. Orthopedic service ff. PT ff po pain meds History of hypertension. continue on Amlodipine History of GERD. Continue on Prilosec History of BPH continue on meds postop- equivalent to Flomax DVT prophylaxis- Xarelto DC home today TTWB left LE Daily dressing changes diet heart healthy Meds - prn pain med. - Percocet 5/325 1 tab po q4 prn for pain Continue home meds Xarelto daily #20 FF up with Orthopedics as OP FF up with PCP in 1 week James Lange MD Nov 12, 2016 09:22
[2016-11-12] MEDS ORDERED: OXYC1TAB63 PO (09:24)
[2016-11-12] MEDS: DEXT 5%-NACL 0.45% 1000 ML INJ 1,000 ML IV SCH (10:00)
[2016-11-12 10:07] VITALS: O2SAT 93
[2016-11-12] MEDS: buPROPion HCL 150 MG SUSTAINED RELEASE TAB PO SCH (10:16)
[2016-11-12] MEDS: DOCUSATE SODIUM 50 MG/SENNA 8.6 MG TAB PO SCH (10:16)
[2016-11-12] MEDS: PANTOPRAZOLE SOD 20 MG DELAYED RELEASE TAB PO SCH (10:16)
[2016-11-12] MEDS: MULTIVITAMINS/MINERALS THERAPEUTIC TAB PO SCH (10:16)
[2016-11-12] MEDS: amLODIPine BESYLATE 5 MG TAB PO SCH (10:16)
[2016-11-12] MEDS: FLUoxetine HCL 20 MG CAP PO SCH (10:17)
[2016-11-12 11:50] VITALS: BP 140/83; PULSE 92; RESP 18; TEMP 99; O2SAT 92
[2016-11-12] MEDS ORDERED: XARE20TA PO (12:35)
--- NOTE | 2016-11-12 12:38 | HHI.DS ---
Discharge Summary Admission Date Nov 10, 2016 at 17:49 Discharge Date: Nov 12, 2016 Admitting Diagnosis Right tibia/fibula fracture (1) Closed fracture of right fibula and tibia ICD Code: S82.201A Diagnosis: Principal (2) Hypertension ICD Code: I10 Diagnosis: Secondary Procedures 11/10- closed reduction with IM nilesh fixation Brief History - From Admission Patient is a very pleasant 61-year-old male with a known history of benign prostate hypertrophy, depression, hypertension from [place] who is here visiting his brother who last evening going through the back porch misjudged a step and fell and tripped. Apparently twisted his leg and woke up this morning with excruciating pain and swelling of the left foot. No chest pains, shortness of breath,. Denies any syncopal episodes . he was promptly brought in here by family on an evaluation showed a distal tib-fib fracture patient. Patient was promptly seen by orthopedic surgery and prepped dose go to surgery this afternoon. PCP is Dr. Bassett from [facility] in [place] CBC/BMP: 11/11/16 0539 11/10/16 1440 Significant Findings Laboratory Tests Test 11/10/16 11/11/16 14:40 05:39 White Blood Count 11.6 TH/MM3 (4.0-11.0) Red Blood Count 4.19 MIL/MM3 (4.50-5.90) Hemoglobin 12.7 GM/DL 12.4 GM/DL (13.0-17.0) (13.0-17.0) Hematocrit 38.3 % 37.6 % (39.0-51.0) (39.0-51.0) Neutrophils (%) (Auto) 80.9 % (16.0-70.0) Monocytes (%) (Auto) 9.5 % (0.0-8.0) Neutrophils # (Auto) 9.4 TH/MM3 (1.8-7.7) Monocytes # (Auto) 1.1 TH/MM3 (0-0.9) Sodium Level 134 MEQ/L (136-145) Estimat Glomerular Filtration 56 ML/MIN (>89) Rate Imaging Last Impressions Tibia/Fibula X-Ray 11/10/16 0000 Signed Impressions: Service Date/Time: Thursday, November 10, 2016 15:56 - CONCLUSION: 1. Nilesh fixation of distal tibial fracture with near-anatomic alignment. Bonifacio Mary MD Foot X-Ray 11/10/16 0000 Signed Impressions: Service Date/Time: Thursday, November 10, 2016 12:08 - CONCLUSION: 1. Distal tibia and fibular fractures. 2. Small bony density adjacent to the proximal medial base of the first metatarsal likely related to a second accessory ossicle versus a small fracture fragment. Baltazar Valdez MD Chest X-Ray 11/10/16 0000 Signed Impressions: Service Date/Time: Thursday, November 10, 2016 14:21 - CONCLUSION: No acute disease. Baltazar Valdez MD PE at Discharge awake and alert, NAD anicteric lungs clear regular rhythm abdomen soft, good bowel sounds right LE- post op elastic dressing in place, wiggle toes freely Pt update on day of discharge afebrile pain controlled Hospital Course 61-year-old male presenting with s/p Fall Status post close reduction with IM nilesh fixation of right tib/fib fracture with right tib-fib fracture. Orthopedic service ff. PT ff po pain meds History of hypertension. continue on Amlodipine History of GERD. Continue on Prilosec History of BPH continue on meds postop- equivalent to Flomax DVT prophylaxis- Xarelto DC home today TTWB left LE Daily dressing changes diet heart healthy Meds - prn pain med. - Percocet 5/325 1 tab po q4 prn for pain Continue home meds Xarelto 20 mg take 1/2 daily for 20 days #20 FF up with Orthopedics as OP FF up with PCP in 1 week Pt Condition on Discharge: Stable Discharge Disposition: Discharge Home Discharge Time: <= 30 minutes Discharge Instructions DIET: Follow Instructions for: Heart Healthy Diet, High Fiber Diet Speech Therapy-Diet Recommends: Regular Activities you can perform: Toe Touch Weight Bearing Activities to Avoid: Lifting/Bending Follow up Referrals: [facility]oped[facility] with Nicho Pablo MD PCP Follow-up - 3-5 Days with PCP New Medications: Rivaroxaban (Xarelto) 20 Mg Tab 10 MG PO DAILY take 1/2 tablet a day for 20 days Blood Clot Prevention #10 Ref 0 TAB Walker with Front Wheels (Walker with Front Wheels) 1 Mis Mis 1 EA .ROUTE DIRECTED #1 Ref 0 EA Oxycodone-Acetaminophen (Oxycodone-Acetaminophen) 5-325 mg Tab 1 TAB PO Q4-6H Pain Management #30 TAB Continued Medications: Alfuzosin ER 24 HR (Alfuzosin ER 24 HR) 10 Mg Tab 10 MG PO HS BPH #30 Ref 0 TAB Amlodipine (Amlodipine) 5 Mg Tab 5 MG PO DAILY Blood Pressure Management #30 Ref 0 TAB Bupropion HCl ER 12 HR (Wellbutrin SR 12 HR) 150 Mg Tab 150 MG PO Q12HR Control Depression Ref 0 TAB Fluoxetine (Fluoxetine) 40 Mg Cap 40 CAP PO DAILY #30 Ref 0 CAP Omeprazole (Omeprazole) 20 Mg Tab 20 MG PO DAILY #30 Ref 0 TAB Trazodone (Trazodone) 100 Mg Tab 250 MG PO HS Control Depression #30 Ref 0 TAB Discontinued Medications: Aspirin DR (Aspirin 81) 81 Mg Tabdr 81 MG PO DAILY Ref 0 TAB James Lange MD Nov 12, 2016 12:38
[2016-11-12 16:00] VITALS: BP 149/90; PULSE 87; RESP 18; TEMP 98.2; O2SAT 95
== END 2016-11-12 18:30 | disposition home or self-care (01) | DRG 494 ==
LOC: NEPC 12:03 → NEDA 14:23 → OBSVTOIN 17:49 → N06B 18:34
PROVIDERS: ADMIT Internal Medicine; ATTEND Internal Medicine
PROC: 0QSG06Z Reposition Right Tibia with Intramedullary Internal Fixation Device, Open Approach (ICD-10-PCS; principal; 2016-11-10 15:45)
DX: S82.231A Displaced oblique fracture of shaft of right tibia, initial encounter for closed fracture (principal); I10 Essential (primary) hypertension; N40.0 Benign prostatic hyperplasia without lower urinary tract symptoms; S82.491A Other fracture of shaft of right fibula, initial encounter for closed fracture; W17.89XA Other fall from one level to another, initial encounter; Y93.9 Activity, unspecified; Y92.008 Other place in unspecified non-institutional (private) residence as the place of occurrence of the external cause; F32.9 Major depressive disorder, single episode, unspecified; K21.9 Gastro-esophageal reflux disease without esophagitis; Z79.82 Long term (current) use of aspirin
CPT/HCPCS: 71010; 73590; 73620; 76000; 76937; 80048; 85014; 85018; 85025; 85610; 85730; 93005; 94150; 96374; C1713; J0131; J0690; J1580; J2250; J2270; J2370; J2405; J3010; J3370; J7120; L1830